=== PATIENT | female | born 1985 | race Caucasian/White ===

== ENCOUNTER → 2018-10-22 | Outpatient (CLI) | payer OTHER ==
--- NOTE | 2018-10-22 16:34 | MR ---
EXAMINATION TYPE: MR tspine/lspine wo con DATE OF EXAM: 10/22/2018 COMPARISON: NONE HISTORY: Pain in thoracic spine. Low back pain. TECHNIQUE: Multiplanar, multisequence imaging of the thoracic and lumbar spine are performed without IV contrast. FINDINGS: T-SPINE: Sagittal T2, counting images shows small posterior disc herniation C5-C6 level effacing the anterior thecal sac on image 7 series 201. Spinal cord shows normal course, caliber, and signal as it courses the thoracic spine. Vertebral body heights and alignment are satisfactory. Disc space heights are maintained. Multilevel small posterior disc herniations are seen effacing anterior thecal sac beginni ng at T4-T5 level sagittal image 8 through the T11-T12 level. Larger disc herniations are noted T6-T7 and T8-T9 levels on sagittal images. Bone marrow signal intensity is preserved. Axial images confirm tiny left paracentral disc protrusion effacing the anterior thecal sac T4-T5 lev el on image 8. Similar disc herniation is seen at T5-T6 level. There is largest right paracentral dis c protrusion effacing anterior thecal sac at T8-T9 level on axial image 13 to ventral surface of spin al cord. Additional right paracentral disc protrusions are seen below this slightly less prominent. N o suspicious incidental finding in the visualized thorax or upper abdomen. IMPRESSION: Multilevel posterior disc herniations in the mid to lower thoracic spine as detailed abov e most prominent at T8-T9 level. If outside MRI becomes available an addendum may be issued. LUMBAR SPINE: Sagittal images of the lumbar spine show vertebral body heights and alignment to appear satisfactory. There is disc desiccation L4-L5 and L5-S1 levels. Annular tear L4-L5 level is seen. No large mountain services manager ior disc herniations are present sagittal images. The conus medullaris is normal in position and sign al ending at L1 level. The bone marrow signal intensity is within normal limits. Axial images show the T12-L1, L1-L2, L2-L3, and L3-L4 levels all to appear within normal limits. Axial images at the L4-L5 levels with mild broad disc bulge and mild facet degenerative changes bilat erally. There is mild effacement of anterior thecal sac. Bilateral neural foramina are patent. Axial images at L5-S1 level shows central disc protrusion and mild facet degenerative changes bilater ally. Spinal canal is preserved. There is more moderate to severe left-sided neural foraminal narrowi ng due to foraminal disc protrusion component effacing the left L5 nerve sagittal image 4. Right-side d neural foramina shows mild narrowing. 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
== END | disposition home or self-care (01) ==
LOC: RADMRIMAIN 14:51
PROVIDERS: ATTEND Family Medicine
DX: M51.24 Other intervertebral disc displacement, thoracic region (principal); M47.816 Spondylosis without myelopathy or radiculopathy, lumbar region
CPT/HCPCS: 72146; 72148

== ENCOUNTER → 2024-06-28 | Outpatient (CLI) | payer OTHER ==
--- NOTE | 2024-06-28 12:38 | MM ---
Reason for Exam: Screening (asymptomatic). Patient History: Menarche at age 12. First Full-Term at age 19. Premenopausal. Maternal aunt had breast cancer, age 45. Risk Values: Candida 5 year model risk: 0.4%. NCI Lifetime model risk: 8.1%. Tissue Density: The breasts are heterogeneously dense, which may obscure small masses. Findings: Analyzed By CAD. Right breast: Calcifications right breast CC view slightly lateral middle depth. Nodular asymmetry right upper outer quadrant. Left breast: Nodular asymmetry left breast middle depth cc view posterior nipple line likely superior on MLO view. Overall Assessment: Incomplete: need additional imaging evaluation, BI-RAD 0 Management: Diagnostic Mammogram of the right breast. Mag view right breast cc view middle depth slightly lateral. 3-D imaging bilateral breasts CC and MLO views. [facility] will attempt to contact patient to return for supplemental views and ultrasound if indicated. Patient should continue monthly self-breast exams. A clinical breast exam by your physician is recommended on an annual basis. This exam should not preclude additional follow-up of suspicious palpable abnormalities. Note on Candida scores and lifetime risk: 1. A Candida score greater than 3% is considered moderate risk. If this is the case, consider specialist referral to assess eligibility for a risk reducing agent. 2. If overall lifetime risk for the development of breast cancer is 20% or higher, the patient may qualify for future screening with alternating mammogram and breast MRI. [facility], , 06/28/2024 12:35 PM. Electronically signed and approved by: Esvin Aparicio DO
== END | disposition home or self-care (01) ==
LOC: RADMAMWWP 10:30
PROVIDERS: ATTEND General Practice
DX: Z12.31 Encounter for screening mammogram for malignant neoplasm of breast (principal); R92.333 Mammographic heterogeneous density, bilateral breasts; R92.1 Mammographic calcification found on diagnostic imaging of breast; Z80.3 Family history of malignant neoplasm of breast
CPT/HCPCS: 77067